=== PATIENT | female | born 2000 | race Caucasian/White ===

== ENCOUNTER 2018-09-15 09:00 | Day surgery (SDC) | payer OTHER ==
--- NOTE | 2018-09-14 21:24 | PDGENHP ---
History and Physical - Chief Complaint RIGHT HIP PAIN - History of Present Illness Diagnosis: 1. Bilateral~Femoroacetabular impingement (AVTAR) Cam type, Right side symptomatic - labral tear 2. Hyperlaxity, Beightons 7 3. 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 Cami's~right~hip pain started about 1 year ago with worsening in the last several months, with~some~recalled trauma or injury~(increased her weight lifting activities, worst with squats and lunges), and with~little~previous complaints~(has had popping for a long time, but not pain).~Idrisdoes not have~ a known history of hip dysplasia. Presentation today is of~anterior, lateral~right~hip pain somewhat superficial if she massages with deep pressure. ~The hip~does not~wake her~at night, but she cannot sleep on her R side,~and does~click and catch on~her. Sitting~can be uncomfortable~for her, particularly if she does so for long periods.~Idrisdoes~ report suffering from lower back pain episodes, but nothing that is persistent or has required treatment.~ Idrishas not~participated in physical therapy and has~tried other conservative measures including chiropractic treatments.~No previous hip injections.~She~has not~received sufficient symptomatic improvement. Idrishas~utilized medication for pain management, including NSAID.~Idrishas used medication intermittently (1-2x/wk). Idrisdoes have popping and catching in~the left~hip, but no pain and would not seek care for it at this point.~~ Idrisunderstands that~teressa~has a hip and pelvis problem which should be researched and wishes to get a better understanding of~her~hip status, followed by an establishment of a treatment strategy, hoping~teressa~would be able to get back to~her~well being active life. History: Past medical history:~~ Depression/anxiety Raynaud's syndrome Relevant familial history:~None which is relevant~ Past surgical history:~ No. Surgery Anesthesia Year Outcome 1 Mills teeth Conscious sedation Age 12 Good 2 Gum graft ?Conscious sedation Age 6 Good Idrishas never received general anesthesia, but reports a family hx of significant post-op N/V. I have reviewed, verified and agree with the past medical, surgical, family and social history. Current Medications:~has a current medication list which includes the following prescription(s): albuterol hfa, bupropion, fluoxetine, isotretinoin, norgestimate-ethi estradiol, and sumatriptan. ALLERGIES:~is allergic to amoxicillin. Objective: Physical Examination: Idrisis 5~feet~5~inches tall and weighs~120~Lbs. Shoe size~9. Idrisis AAO x3; she~is well-nourished, in NAD. Skin is warm and dry. ~Breathing is non-labored. ~CV with RRR by pulse. Abdomen is soft, NTND. Currently,~she~walks with a~normal~gait. Trendelenburg sign is~negative~and proprioception~is reduced,~left~sides. She~presents~with moderate~signs of joint laxity.~Beightons Score:~7 (all but knees) She~is fit looking. ~~ Lower spine examination is~negative~for sciatic or femoral nerve irritation with negative~SLR &~femoral stretch tests. Range of motion of the spine is normal~for flexion, extension, and rotations,~with no~associated pain. Strength, Sensation and pulses are~normal -~bilaterally Ankles and knees exams are~normal~and~no~mal-alignment is evident.~ She~has~no leg length discrepancy. Thigh circumference is~symmetric~with no evidence for muscle atrophy~on both~ sides. Hip ROM (degrees):~Apprehension on R side to ROM testing FL ER At 90~hip FL IR At 90~hip FL AB AD EX IR Neutral hip ER Neutral hip R 115 45 35-40 40 10 5 50 35 L 115-120 50 45 40 5 5 50 10 Specific hip and pelvis tests: Impingement Test YOSSI Roll Add. Longus R +++ +++ Negative ++ L Negative Negative Negative Negative Glut. Med ITB Posterior Imp R +++ 5/5 strength +++ 5/5 strength +++~(anterior) L Negative 5/5 strength Negative 5/5 strength Negative Squeeze test measured~strong Bony Symphysis pubis is~pain free~to touch while concentric activity of the rectus abdominis, does not~produce pain at its insertion. Ilio Psos specific tests are~positive for pain during cycling for~the right hip~ and remarkable for painful snap~on R and non-painful snap on L HF has~pain~the right hip. Lateral~capsule tenderness R side Greater trochanteric burse is~painful~on the right hip. Piriformis tests: FAIR is~negative,~with no~local signs of neuritis related to sciatic nerve. SIJs examination is~normal~with~normal~YOSSI in relation and local tenderness. Hamstrings tests are~negative~tendinopathy both hips. On a daily basis, the following percentages reflect~Cami's overall total pain: Deep hip:~50% anterior, 50%~lateral -- feels that these are essentially the same entity and connected Imaging: Radiology studies which I~have personally reviewed, analyzed and measured are below: XR: AP of the hip and pelvis: Performed in a~good~technique Coccyx to pubic symphysis distance~1.6~cm. 8~degrees caudal [place]~Lines are preserved. Minimal~Pathological signs are seen in the Symphysis Pubis.~ Minimal~Pathological signs are seen at the Ischial~tuberosity. ~ Specific measurements show:~ 0 deg WB (8 deg corrected) NSA~ LCE Sourcil~Angle Sharp's angle Lat. Cam Lat. Pincer C.Over~sign Head~Coverage % ATDmm R 132 28~(31) ~3~(0) 41 Neg Neg Neg 80% 22.2 L 132 28~(29) 1~(0) 42 Neg Neg Neg 80% 19.6 Pos. wall sign ISS NAD ~~Dysplasia Comments R Negative Negative 16.1~mm Negative L Negative Negative 20.5~mm Negative Sclerosis Sup. Lat. OA Cysts Joint Space-WBZ Joint Space-Medial R Negative Negative Negative 3.9~mm 3.5~mm L Negative Negative Negative 3.5~mm 3.4~mm X Table lateral: Anterior cam lesion is~seen~on the right hip. Alpha Angle: ~ Right~53~degrees Left~39~degrees Impression and plan:~ Cami~is a~17 y.o.~active female~suffering from symptomatic~Bilateral~ Femoroacetabular impingement (AVTAR) Cam type~(RIGHT symptomatic)~causing significant disability to~her~and altering~her~sport and life activities. Physical examination, imaging, and~her~story correspond with the diagnosis mentioned above. I explained that femoroacetabular impingement (AVTAR) arises due to a bony or soft tissue conflict between the femur (ball) and acetabulum (socket) caused by an abnormality in the shape of the hip joint. Over time, repetitive impingement can result in damage to the labrum and adjacent surface cartilage within the socket, ultimately giving rise to progressive osteoarthritis of the hip. I explained that although a labral tear can be a source of pain, it is rarely the root of the problem and typically occurs secondary to an underlying abnormality in the shape and mechanics of the hip joint. ~ I reviewed conservative treatment options for AVTAR including activity modification to avoid positions of impingement, physical therapy, non-steroidal anti-inflammatory medications, and various injections (corticosteroid and PRP) aimed at reducing inflammation in the hip joint or/and preventing dynamic impingement. PRP injections may promote healing and reduce symptoms in certain cases but it will not repair chronically damaged tissue. Although these measures may help to buy time and reduce current level of symptoms, they are not a definitive solution to the problem given the underlying abnormality in the shape of the hip joint. Patients who have failed conservative management and continue to experience symptoms are candidates for hip arthroscopy, a minimally invasive surgery that can definitively address the underlying problem. Hip arthroscopy typically includes treating the labrum with either repair or reconstruction of the torn labrum; as well as addressing the underlying abnormalities by restoring the normal shape to the hip joint. ~If the cartilage is damaged a Microfracture~ surgical procedure may also be necessary to help stimulate the growth of fibrocartilage. ~If a patient requires a labral reconstruction or a Microfracture, the initial rehabilitation from the surgery may take longer, but the detention results are typically favorable. I reviewed the technical aspects of hip arthroscopy including risks, benefits, and expected course of recovery. Cami understands that hip arthroscopy is a minimally invasive outpatient procedure carried out through small incisions on the outer aspect of the hip joint. During surgery, the labral tear will be identified and either repaired or reconstructed using bone anchors and suture material. Additionally, any excessive bone will be removed with a high-speed jyotsna to reshape the hip joint and restore normal anatomy. Risks include infection, bleeding, injury to nearby nerves or vessels, stiffness, persistent pain, instability, venous thromboembolic disease, and traction related complications including temporary foot numbness. Rarely, revision surgery may be required to address these problems. Overall recovery takes approximately 4 8 months depending on the extent of damage and degree of repair. In the event that the labral tissue quality is inadequate for successful repair and healing, Cami understands that a labral reconstruction will be performed. This procedure entails placing a cadaver tissue graft within the hip joint and stabilizing it with bone anchors to build a new labrum. The overall recovery time for labral reconstruction is similar to that of labral repair, although the surgical procedure takes longer to perform. Cami~will review the info presented. In order to better evaluate the soft tissues and cartilage of the hip joint, I will order an MRI scan. In order to obtain more detailed information regarding the alignment, orientation, and shape of the bony hip and pelvis I will order a CT scan to be performed. The results of the CT scan, including femoral torsion and acetabular version measured values and 3D images, will aid me in deciding on the best treatment strategy and surgical pre-planning. Cami is going to contact us after completing her imaging studies. Idrisis happy with this plan. I have also supplied~her~with handouts, outlining the expected surgical treatment and rehab involved. I wish~Idrisall the best, ~~ Lyndsay Olea MD History Information - Allergies/Home Medication List Allergies/Adverse Reactions: amoxicillin Allergy (Verified 09/05/18 11:57) Hives Home Medications: Multivitamin 09/05/18 [Last Taken Unknown] Ortho Tri-Cyclen 28 Tablet 09/05/18 [Last Taken Unknown] Prozac 10 MG (*) 09/05/18 [Last Taken Unknown] Wellbutrin Sr 09/05/18 [Last Taken Unknown] I have personally reviewed and updated: medical history - Social History Smoking Status: Never smoked Review of Systems Review of Systems: Physical Exam Physical Exam:
[2018-09-15] MEDS ORDERED: BUPIVACAINE/EPI 0.25% 30 ML SDV ONE ×2 (09:27→09:32)
[2018-09-15] MEDS ORDERED: EPINEPHrine 30 MG/30 ML MDV (0.1 MG/0.1 ML) ONE ×2 (09:27→09:32)
[2018-09-15] MEDS ORDERED: ceFAZolin 2 GM/DEXTROSE 100 ML IV ONE (09:40)
[2018-09-15] MEDS ORDERED: PREGABALIN 150 MG CAP PO ONE (09:40)
[2018-09-15] MEDS ORDERED: ACETAMINOPHEN 500 MG TAB PO ONE (09:40)
[2018-09-15] MEDS ORDERED: LR 1,000 ML IV ONE (09:45)
[2018-09-15] MEDS ORDERED: MIDAZOLAM 2 MG/2 ML VIAL ONE (10:29)
[2018-09-15] MEDS ORDERED: MIDAZOLAM 2 MG/2 ML VIAL IVP ONE (10:29)
--- NOTE | 2018-09-15 10:29 | PDANEPAE ---
ANE Past Medical History - Cardiovascular History Hx Hypertension: No Hx Arrhythmias: No Hx Chest Pain: No Hx Coronary Artery / Peripheral Vascular Disease: No Hx CHF / Valvular Disease: No Hx Palpitations: No - Pulmonary History Hx COPD: No Hx Asthma/Reactive Airway Disease: No Hx Recent Upper Respiratory Infection: No Hx Oxygen in Use at Home: No Hx Sleep Apnea: No Sleep Apnea Screening Result - Last Documented: Negative Pulmonary History Comment: EXERCISE INDUCED ASTHMA A CHILD - Neurologic History Hx Cerebrovascular Accident: No Hx Seizures: No Hx Dementia: No Neurologic History Comment: MIGRAINES OCCAS - Endocrine History Hx Diabetes: No Hypothyroid: No Hyperthyroid: No Obesity: no - Renal History Hx Renal Disorders: No - Liver History Hx Hepatic Disorders: No - Neurological & Psychiatric Hx Hx Neurological and Psychiatric Disorders: Yes Neurological / Psychiatric History Comment: ANXIETY & DEPRESSION - Cancer History Hx Cancer: No - Congenital Disorder History Hx Congenital Disorders: No - GI History Hx Gastrointestinal Disorders: No - Other Health History Other Health History: NEG - Chronic Pain History Chronic Pain: Yes (R HIP) - Surgical History Prior Surgeries: WISDOM TEETH ANE Review of Systems Review of Systems: - Exercise capacity METS (RN): 5 METS ANE Patient History - Allergies Allergies/Adverse Reactions: amoxicillin Allergy (Verified 09/05/18 11:57) Hives - Home Medications Home Medications: Multivitamin 09/05/18 [Last Taken Unknown] Ortho Tri-Cyclen 28 Tablet 09/05/18 [Last Taken Unknown] Prozac 10 MG (*) 09/05/18 [Last Taken Unknown] Wellbutrin Sr 09/05/18 [Last Taken Unknown] - NPO status NPO Since - Liquids (Date): 09/15/18 NPO Since - Liquids (Time): 10:04 NPO Since - Solids (Date): 09/14/18 - Smoking Hx Smoking Status: Never smoked - Family Anes Hx Family Hx Anesthesia Complications: FATHER & SISTER - NAUSEA & VOMITING ANE Labs/Vital Signs - Vital Signs Blood Pressure: 126/76 Heart Rate: 85 Respiratory Rate: 16 O2 Sat (%): 100 Height: 167.64 cm Weight: 54.431 kg ANE Physical Exam - Airway Neck exam: FROM Mallampati Score: Class 1 Mouth exam: normal dental/mouth exam - Pulmonary Pulmonary: no respiratory distress - Cardiovascular Cardiovascular: regular rate and rhythym - ASA Status ASA Status: I ANE Anesthesia Plan Anesthesia Plan: general endotracheal anesthesia
[2018-09-15] MEDS ORDERED: fentaNYL 250 MCG/5 ML INJ ONE (10:38)
[2018-09-15] MEDS ORDERED: ROCURONIUM 50 MG/5 ML VIAL ONE ×2 (10:38→11:31)
[2018-09-15] MEDS ORDERED: LIDOCAINE 2% 5 ML SDV ONE (10:38)
[2018-09-15] MEDS ORDERED: PROPOFOL/EMULSION 500 MG/50 ML BOTTLE IV ONE (10:39)
[2018-09-15] MEDS ORDERED: SCOPOLAMINE HYDROBROMIDE 1 MG/3 DAYS PATCH TD ONE (10:41)
[2018-09-15] MEDS ORDERED: GLYCOPYRROLATE 0.2 MG/1 ML VIAL ONE ×3 (12:37→14:01)
[2018-09-15] MEDS ORDERED: NEOSTIGMINE METHYLSULFATE 10 MG/10 ML MDV ONE (14:01)
[2018-09-15] MEDS ORDERED: DEXAMETHASONE 4 MG/ML VIAL ONE ×2 (14:02)
[2018-09-15] MEDS ORDERED: ONDANSETRON 4 MG/2 ML VIAL ONE (14:02)
[2018-09-15] MEDS: PROMETHAZINE HCL 25 MG/ML INJ IVP PRN ×2 (14:15→14:37)
[2018-09-15] MEDS ORDERED: PROMETHAZINE HCL 25 MG/ML INJ ONE (14:23)
[2018-09-15] MEDS ORDERED: NALOXONE HCL 0.4 MG/ML INJ IVP PRN (14:25)
--- NOTE | 2018-09-15 14:25 | POSTANESTH ---
Post Anesthetic Evaluation Cardiovascular Status: Normal, Stable Respiratory Status: Normal, Stable Level of Consciousness/Mental Status: Can Participate in Eval Pain Control: Adequate, Prn Tx Ordered Nausea/Vomiting Control: Adequate, Prn Tx Ordered Complications Possibly Related to Anesthesia: None Noted
[2018-09-15] MEDS ORDERED: fentaNYL 100 MCG/2 ML INJ ONE (14:37)
[2018-09-15] MEDS: fentaNYL 100 MCG/2 ML INJ IVP PRN ×2 (14:38→15:26)
[2018-09-15] MEDS ORDERED: OXYCODONE/APAP 5/325 TAB ONE (16:06)
[2018-09-15] MEDS ORDERED: OXYCODONE/APAP 5/325 TAB PO PRN (16:11)
[2018-09-15 17:06] VITALS: BP 110/68
== END 2018-09-15 17:00 | disposition home or self-care (01) ==
LOC: FSGY 09:00
PROVIDERS: ATTEND Orthopaedic Surgery Sports Medicine
PROC: 0SQ94ZZ Repair Right Hip Joint, Percutaneous Endoscopic Approach (ICD-10-PCS; principal; 2018-09-15 10:45)
PROC: BQ101ZZ Fluoroscopy of Right Hip using Low Osmolar Contrast (ICD-10-PCS; principal; 2018-09-15 10:45)
DX: Q65.89 Other specified congenital deformities of hip (principal); M24.151 Other articular cartilage disorders, right hip; I73.00 Raynaud's syndrome without gangrene
CPT/HCPCS: C1713; J0171; J0690; J1100; J2250; J2405; J2550; J2704; J3010